=== PATIENT | female | born 1975 | race American Indian/Alaskan Native ===

== ENCOUNTER 2016-11-06 21:56 | Emergency (ER) | payer OTHER ==
[2016-11-06 22:10] VITALS: BP 131/91
[2016-11-07] MEDS ORDERED: CLEOCIN 900 MG/50 mL 900 MG/50 ML BAG IV ONE (02:40)
[2016-11-07] MEDS ORDERED: TORADOL IV ONE (02:40)
[2016-11-07 03:01] LABS: Basophils % (Auto) 0.3 % (0.0-1.8); Hematocrit 42.4 % (30.3-42.9); Hemoglobin 13.6 gm/dl (10.1-14.3); Mean Corpuscular HGB Conc 32 % (30-34); Mean Corpuscular Hemoglobin 27 pg (28-32); Mean Corpuscular Volume 85 fl (79-97); Platelet Count 391 K/mm3 (140-440); Red Blood Count 5.01 M/mm3 (3.65-5.03); Red Cell Distribution Width 14.7 % (13.2-15.2); White Blood Count 18.1 K/mm3 (4.5-11.0)
[2016-11-07 03:15] LABS: Erythrocyte Sedimentation Rate 16 mm/Hr (0-20)
[2016-11-07 03:41] LABS: Anion Gap 20 mmol/L; BUN/Creatinine Ratio 11.25; Blood Urea Nitrogen 9 mg/dL (7-17); Calcium 9.3 mg/dL (8.4-10.2); Carbon Dioxide 24 mmol/L (22-30); Chloride 98.5 mmol/L (98-107); Glucose 154 mg/dL (65-100); Potassium 3.4 mmol/L (3.6-5.0); Sodium 139 mmol/L (137-145)
--- NOTE | 2016-11-07 05:35 | Emergency Department Report ---
- General Chief complaint: Skin/Abscess/Foreign Body Stated complaint: BOIL Time Seen by Provider: 11/07/16 01:27 Source: patient Mode of arrival: Ambulatory Limitations: No Limitations - History of Present Illness Initial comments: 41-year-old female past medical history none presents with complaint of 5 days of boil to her back. Denies fever chills no upper or lower extremity paresthesias no difficulty moving. Patient states that she has pain directly over the site when lying down. Denies any recent trauma to back. Denies any history of HIV cancer or IV drug use. No prior history of abscesses. MD complaint: abscess/boil (right lateral back) Onset/Timin -: days(s) Tetanus Up to Date: no Severity: moderate Severity scale (0 -10): 5 Quality: aching Consistency: constant Improves with: none Worsens with: none Treatments Prior to Arrival: OTC topical medication - Related Data Previous Rx's Medication Instructions Recorded Last Taken Type Clindamycin [Clindamycin CAP] 300 mg PO Q6H #28 capsule 11/07/16 Unknown Rx HYDROcodone/APAP 5-325 [[place] 1 each PO Q6HR PRN #20 tablet 11/07/16 Unknown Rx 5/325] Ibuprofen [Motrin] 600 mg PO Q8H PRN #30 tablet 11/07/16 Unknown Rx Allergies Allergy/AdvReac Type Severity Reaction Status Date / Time No Known Allergies Allergy Verified 11/06/16 22:05 Abscess Boil HPI - HPI Chief Complaint: Skin/Abscess/Foreign Body Stated Complaint: BOIL Time Seen by Provider: 11/07/16 01:27 Home Medications: Previous Rx's Medication Instructions Recorded Last Taken Type Clindamycin [Clindamycin CAP] 300 mg PO Q6H #28 capsule 11/07/16 Unknown Rx HYDROcodone/APAP 5-325 [[place] 1 each PO Q6HR PRN #20 tablet 11/07/16 Unknown Rx 5/325] Ibuprofen [Motrin] 600 mg PO Q8H PRN #30 tablet 11/07/16 Unknown Rx Allergies/Adverse Reactions: Allergies Allergy/AdvReac Type Severity Reaction Status Date / Time No Known Allergies Allergy Verified 11/06/16 22:05 ED Review of Systems ROS: Stated complaint: BOIL Other details as noted in HPI Constitutional: denies: chills, fever Eyes: denies: eye pain, eye discharge, vision change ENT: denies: ear pain, throat pain Respiratory: denies: cough, shortness of breath, wheezing Cardiovascular: denies: chest pain, palpitations Endocrine: no symptoms reported Gastrointestinal: denies: abdominal pain, nausea, diarrhea Genitourinary: denies: urgency, dysuria, discharge Musculoskeletal: denies: back pain, joint swelling, arthralgia Skin: as per HPI (abscess on right side back). denies: rash, lesions Neurological: denies: headache, weakness, paresthesias Psychiatric: denies: anxiety, depression Hematological/Lymphatic: denies: easy bleeding, easy bruising ED Past Medical Hx - Past Medical History Previous Medical History?: No - Surgical History Past Surgical History?: No - Social History Smoking Status: Never Smoker Substance Use Type: Alcohol - Medications Home Medications: Home Medications Medication Instructions Recorded Confirmed Last Taken Type Clindamycin [Clindamycin CAP] 300 mg PO Q6H #28 capsule 11/07/16 Unknown Rx HYDROcodone/APAP 5-325 [[place] 1 each PO Q6HR PRN #20 tablet 11/07/16 Unknown Rx 5/325] Ibuprofen [Motrin] 600 mg PO Q8H PRN #30 tablet 11/07/16 Unknown Rx ED Physical Exam - General Limitations: No Limitations General appearance: alert, in no apparent distress - Head Head exam: Present: atraumatic, normocephalic - Eye Eye exam: Present: normal appearance, PERRL, EOMI - ENT ENT exam: Present: mucous membranes moist - Neck Neck exam: Present: normal inspection, full ROM - Respiratory Respiratory exam: Present: normal lung sounds bilaterally. Absent: respiratory distress - Cardiovascular Cardiovascular Exam: Present: regular rate, normal rhythm. Absent: systolic murmur, diastolic murmur, rubs, gallop - GI/Abdominal GI/Abdominal exam: Present: soft, normal bowel sounds - Extremities Exam Extremities exam: Present: normal inspection - Back Exam Back exam: Present: normal inspection, paraspinal tenderness (abscess is to the right of the midline spine and thoracic region, is not directly over the midline , overlying area of trapezius and latissimus, approximately 8-9 cm diameter) - Expanded Back Exam Expanded 1 - Patient has large abscess approximately 8 cm in diameter with central head and fluctuance. Surrounding induration and erythema visible. Not over midline thoracic spine, adjacent to it in area of base of trapezius and border of the latissimus - Neurological Exam Neurological exam: Present: alert, oriented X3, CN II-XII intact, normal gait - Psychiatric Psychiatric exam: Present: normal affect, normal mood - Skin Skin exam: Present: warm, dry, intact, normal color. Absent: rash ED Course Vital Signs 11/06/16 21:59 Temperature 98.2 F Pulse Rate 71 Respiratory 18 Rate Blood Pressure 131/91 [Right] O2 Sat by Pulse 100 Oximetry - I & D Right Lateral Back Type of Procedure: Complex Site: right side mid back posterior lateral to t-spine Blade Size: 11 I & D Procedure: betadine prep Progress: Area infiltrated with lidocaine and epinephrine 1%, incised with 11 blade and central portion of abscess, suction used, approximately 20 mL of pus removed, procedure tolerated well, significant amount of purulent drainage, I packed the wound site with approximately 9-10 inches of half-inch iodoform gauze. A small incision made inferior to maintain incision site in which I packed approximately 3 inches of half-inch iodoform gauze. I made 3 incisions in total in order to obtain maximal amount of purulent drainage from abscess as it was moderate to large in size. Dr. Blake present for procedure. ED Medical Decision Making - Lab Data Result diagrams: 11/07/16 02:47 11/07/16 02:47 - Medical Decision Making A/P: Paraspinal back abscess 1-incision and drainage performed, with suction approximately 20 mL of pus drained from the wound, wound packed with half-inch iodoform gauze. I made 3 surgical incisions in order to drain abscess as efficiently as possible, I broke up loculations of abscess as much as I could with forceps in order to express as much purulent material as possible. I packed wound in 2 sites with half-inch iodoform gauze, one strip was approximately 10 inches the other strip was approximately 3 inches smaller strip placed inferior to central abscess incision site 2-patient given 1 dose of IV 900 clindamycin here and will discharge with course of 7 days of clindamycin 3-follow-up wound check within 48-72 hours in ED. I also provided pt info for general surgery f/u. 4-advised patient to return to the ED if she experiences any fever or chills reaccumulation of abscess paresthesias in her upper or lower extremities any signs of paralysis or any worsening back pain 5-Motrin and [place] short course for pain 6- Dr. Blake examine the patient with me as I was draining the abscess, as per Dr. Blake abscess is not large enough at this time to indicate any imaging and is not directly over the midline spine. Critical care attestation.: If time is entered above; I have spent that time in minutes in the direct care of this critically ill patient, excluding procedure time. ED Disposition Clinical Impression: Abscess of back Cellulitis Qualifiers: Site of cellulitis: other site Qualified Code(s): L03.818 - Cellulitis of other sites Disposition: DISCHARGED TO HOME OR SELFCARE Is pt being admited?: No Does the pt Need Aspirin: No Condition: Stable Instructions: Abscess Incision and Drainage (ED), Abscess (ED), Cellulitis (ED) Additional Instructions: 48-72 hours and check and packing removal. Patient understood these instructions clearly. I advised patient to return to the ED if she develops any fever or chills or reaccumulation of abscess. Prescriptions: Clindamycin [Clindamycin CAP] 300 mg PO Q6H #28 capsule HYDROcodone/APAP 5-325 [[place] 5/325] 1 each PO Q6HR PRN #20 tablet PRN Reason: Pain Ibuprofen [Motrin] 600 mg PO Q8H PRN #30 tablet PRN Reason: Pain Referrals: DIMAS MULLIGAN MD [Staff Physician] - 3-5 Days APRIL VELASQUEZ MD [Staff Physician] - 3-5 Days Forms: Work/School Release Form(ED) Time of Disposition: 05:44
== END 2016-11-07 06:10 | disposition home or self-care (01) ==
LOC: ED 21:56
DX: L02.212 Cutaneous abscess of back [any part, except buttock and flank] (principal)
CPT/HCPCS: 10061; 36415; 80048; 82140; 85025; 85652; 86140; 87076; 87116; 87186; 96365; 96375; 99283; J1885

== ENCOUNTER 2016-11-09 10:51 | Emergency (ER) | payer OTHER ==
[2016-11-09 12:10] VITALS: BP 128/81
--- NOTE | 2016-11-09 17:14 | Emergency Department Report ---
Entered by JOHN HELMS, acting as scribe for ZAINA EDUARDO PA. - General Chief Complaint: Skin/Abscess/Foreign Body Stated Complaint: REMOVAL OF PACKING Time Seen by Provider: 11/09/16 16:27 Source: patient Mode of arrival: Ambulatory Limitations: No Limitations - History of Present Illness Initial Comments: 41 y/o female with no significant PMHx, presents to the ED for a recheck of right lateral mid-back abscess following I&D. The abscess initially began 1 week ago. The patient was seen by Zaina Eduardo PA-C 2 days ago, at which time an I&D and packing was done. She states she has been compliant with changing the external dressing in addition to the prescribed antibiotic regimen. Pain is decreased since previous interaction, characterized as soreness. She denies nausea, vomiting, fever, and chills. -: days(s) (patient was seen 2 days ago at [facility]-ED, I&D done), week(s) (1 week ago, initial onset) Location: back (right upper) Associated Symptoms: pain (mild soreness at site, decreased from initial presentation). denies: nausea/vomiting, fever Treatments Prior to Arrival: other (patient had abscess I&D 2 days ago at [facility]- ED, prescribed clindomycin abx, 2 pieces of packing placed) - Related Data Previous Rx's Medication Instructions Recorded Last Taken Type Clindamycin [Clindamycin CAP] 300 mg PO Q6H #28 capsule 11/07/16 Unknown Rx HYDROcodone/APAP 5-325 [[place] 1 each PO Q6HR PRN #20 tablet 11/07/16 Unknown Rx 5/325] Ibuprofen [Motrin] 600 mg PO Q8H PRN #30 tablet 11/07/16 Unknown Rx Allergies Allergy/AdvReac Type Severity Reaction Status Date / Time No Known Allergies Allergy Verified 11/06/16 22:05 ED Review of Systems Comment: All other systems reviewed and negative Constitutional: denies: chills, fever Gastrointestinal: denies: nausea, vomiting Skin: other (soreness at site of abscess in the right upper back) ED Past Medical Hx - Past Medical History Previous Medical History?: Yes - Surgical History Past Surgical History?: No - Social History Smoking Status: Never Smoker Substance Use Type: None - Medications Home Medications: Home Medications Medication Instructions Recorded Confirmed Last Taken Type Clindamycin [Clindamycin CAP] 300 mg PO Q6H #28 capsule 11/07/16 Unknown Rx HYDROcodone/APAP 5-325 [[place] 1 each PO Q6HR PRN #20 tablet 11/07/16 Unknown Rx 5/325] Ibuprofen [Motrin] 600 mg PO Q8H PRN #30 tablet 11/07/16 Unknown Rx ED Physical Exam - General Limitations: No Limitations General appearance: alert, in no apparent distress, other (well nourished, well appearing, ) - Head Head exam: Present: atraumatic, normocephalic - Eye Eye exam: Present: normal appearance - ENT ENT exam: Present: other (no external lesions) - Neck Neck exam: Present: normal inspection, full ROM (supple) - Respiratory Respiratory exam: Present: normal lung sounds bilaterally (clear to auscultation and percussion) - Cardiovascular Cardiovascular Exam: Present: regular rate, normal rhythm, normal heart sounds. Absent: systolic murmur, diastolic murmur, rubs, gallop - GI/Abdominal GI/Abdominal exam: Present: soft. Absent: organomegaly, mass, hernia - Extremities Exam Extremities exam: Present: normal inspection (no amputations or deformities), full ROM - Back Exam Back exam: Present: other (previously I&D/packed abscess noted to the right lateral mid-back) - Neurological Exam Neurological exam: Present: alert, oriented X3 - Psychiatric Psychiatric exam: Present: normal affect, normal mood - Skin Skin exam: Present: other (good turgor, abscess on the right lateral mid-back appears to be healing well, area of induration has diminished significantly from marked borders, no signs increased of erythema or cellulitis, appears to be healing ). Absent: rash ED Course Vital Signs 11/09/16 12:04 Temperature 98.7 F Pulse Rate 60 Respiratory 18 Rate Blood Pressure 128/81 O2 Sat by Pulse 100 Oximetry ED Medical Decision Making - Medical Decision Making 41 y/o female presents for abscess recheck following I&D performed by Zaina Eduardo PA-C, 2 days ago. Site of I&D appears to be slowly healing, improved from previous interaction, area of induration has diminished significantly from marked borders, no increase in cellulitis and erythema. Removed 1 piece of packing from the central abscess and 1 piece of packing from the adjacent abscess. Replaced with inch iodoform gauze (6 inches of packing placed in central abscess, 3 inches of packing placed in adjacent abscess). Patient instructed to return in 4 days for final wound recheck. Patient encouraged to return for any fever, chills, increase in size of the abscess, or worsening symptoms. ED Disposition Clinical Impression: Abscess of back, Redressing wound Disposition: DISCHARGED TO HOME OR SELFCARE Is pt being admited?: No Does the pt Need Aspirin: No Condition: Stable Instructions: Acute Wound Care (ED) Additional Instructions: Patient advised to return to the ED in approximately 4 days for removal of packing and final wound check. Referrals: PRIMARY CARE,MD [Primary Care Provider] - 3-5 Days Time of Disposition: 17:13 This documentation as recorded by the SCOOTER martin GRACE,accurately reflects the service I personally performed and the decisions made by JAYCE reveles RICHARD J, PA.
== END 2016-11-09 17:28 | disposition home or self-care (01) ==
LOC: ED 10:51
DX: Z48.01 Encounter for change or removal of surgical wound dressing (principal); L02.212 Cutaneous abscess of back [any part, except buttock and flank]
CPT/HCPCS: 99282